=== PATIENT | female | born 1990 | race Caucasian/White ===

== ENCOUNTER 2021-10-15 20:19 | Inpatient (IN) | payer OTHER ==
[2021-10-15 21:59] LABS: HCT 35.8 % (37.0-47.0); HGB 12.2 g/dl (12.5-16.0); MCH 32.7 pg (25.0-31.0); MCHC 34.1 g/dL (32.0-36.0); RBC 3.73 M/uL (4.20-5.40); RDW 14.2 % (11.5-14.0); WBC 11.9 K/uL (4.0-10.5)
[2021-10-15 22:03] LABS: BILIRUBIN 1+ mg/dL (NEGATIVE); BLOOD 1+ Ery/uL (NEGATIVE); CLARITY HAZY (CLEAR); COLOR YELLOW (YELLOW); GLUCOSE (U) NORMAL (NORMAL); LEUKOCYTES TRACE Leu/uL (NEGATIVE); NITRITE NEGATIVE (NEGATIVE); PROTEIN 2+ mg/dL (NEGATIVE); SPECIFIC GRAVITY >=1.030 (1.001-1.030)
[2021-10-15 22:20] LABS: ALBUMIN 2.7 g/dL (3.4-5.0); BILIRUBIN - TOTAL 0.4 mg/dL (0.2-1.0); BUN/CREAT RATIO (CALC) 7.1 RATIO; CREATININE 0.7 mg/dL (0.51-0.95); POTASSIUM 3.8 mmol/L (3.5-5.1); TOTAL PROTEIN 6.7 g/dL (6.4-8.2)
[2021-10-15 22:22] LABS: PROTEIN:CREATININE 0.31 RATIO; URINE CREATININE 282.53 mg/dL (29.00-226.00); URINE TOTAL PROTEIN-RANDOM 89.8 mg/dL (<11.9)
[2021-10-15 22:33] LABS: BACTERIA 2+; CALCIUM OXALATE CRYSTALS TRACE
[2021-10-17 07:15] LABS: MCH 32.5 pg (25.0-31.0); MCHC 33.3 g/dL (32.0-36.0); MCV 97.4 fL (78.0-100.0); MPV 12.1 fL (6.0-9.5); RBC 3.08 M/uL (4.20-5.40); RDW 14.3 % (11.5-14.0)
== END 2021-10-18 14:53 | disposition home or self-care (01) | DRG 806 ==
LOC: FOB 20:19
PROVIDERS: ADMIT Obstetrics & Gynecology
PROC: 10E0XZZ Delivery of Products of Conception, External Approach (ICD-10-PCS; principal; 2021-10-17)
PROC: 3E0P7VZ Introduction of Hormone into Female Reproductive, Via Natural or Artificial Opening (ICD-10-PCS; 2021-10-17)
DX: O11.4 Pre-existing hypertension with pre-eclampsia, complicating childbirth (principal); D62 Acute posthemorrhagic anemia; Z37.0 Single live birth; Z3A.37 37 weeks gestation of pregnancy; O99.02 Anemia complicating childbirth; O99.214 Obesity complicating childbirth; Z86.16 Personal history of COVID-19; Z20.822 Contact with and (suspected) exposure to COVID-19; O99.824 Streptococcus B carrier state complicating childbirth; O99.344 Other mental disorders complicating childbirth; F41.9 Anxiety disorder, unspecified; F32.A Depression, unspecified; Z88.5 Allergy status to narcotic agent; Z87.440 Personal history of urinary (tract) infections
CPT/HCPCS: 36415; 80053; 81001; 82570; 84156; 86900; 86901; J0595; J2001; J2540; J3010; J7120; U0002